=== PATIENT | male | born 1990 | race Caucasian/White ===

== ENCOUNTER 2016-10-15 17:46 | Emergency (ER) | payer BC, OTHER ==
[~2016-10-15] VITALS: Ht 167.6 cm; Wt 86.2 kg
[~2016-10-15 17:46] MED LIST: CYCL10TA9 PO; HYDR-3454 PO; IBUP-1780 PO; NAPR-243 PO; PENI500T PO
[2016-10-15] MEDS ORDERED: PANT20TA2 PO (18:32)
[2016-10-15] MEDS ORDERED: IBUP-1780 PO (18:32)
--- NOTE | 2016-10-15 18:33 | ED Upper Extremity ---
General Chief Complaint: Upper Extremity Nursing Triage Note: PT STATES RT SHOULDER PAIN, HX OF OFF AND ON SINCE 2011. OCCATIONALLY FEELS LIKE IT "POPS" WHEN HE IS WORKING. STATES HE WAS PULLING AT HIS JOB TODAY WHEN IT HAPPENED. Nursing Sepsis Screen: No Definite Risk Source: patient Exam Limitations: no limitations History of Present Illness Time seen by provider: 18:29 Initial Comments To ER with pain and popping in his right shoulder. This is been going on intermittently since [address] Nieves and got some injections in the right shoulder. He states that that did temporarily help however today while at work he was pulling with his right arm and has had significant pain in the elbow since then. Onset: just prior to arrival Severity: moderate Pain/Injury Location: right shoulder Method of Injury: unknown Modifying Factors: Worse With Movement Allergies and Home Medications Allergies Coded Allergies: No Known Drug Allergies (Unverified , 01/24/16) Home Medications Ibuprofen 800 Mg Tablet, 800 MG PO Q8H PRN for PAIN, (Reported) Constitutional: see HPI EENTM: see HPI Respiratory: no symptoms reported Cardiovascular: no symptoms reported Genitourinary: no symptoms reported Musculoskeletal: see HPI Skin: no symptoms reported Psychiatric/Neurological: No Symptoms Reported Past Tjtgwpq-Mmvoac-Jqymvl Hx Patient Social History Alcohol Use: Rarely Uses Recreational Drug Use: No Smoking Status: Current Everyday Smoker Type Used: Cigarettes Recent Foreign Travel: No Contact w/Someone Who Travel: No Recent Infectious Disease Expo: No Recent Hopitalizations: No Immunizations Up To Date Date of Influenza Vaccine: Mar 18, 2016 Seasonal Allergies Seasonal Allergies: Yes Surgeries HX Surgeries: Yes Surgeries: Tonsillectomy Respiratory Hx Respiratory Disorders: No Cardiovascular Hx Cardiac Disorders: No Neurological Hx Neurological Disorders: No Reproductive System Hx Reproductive Disorders: No Genitourinary Hx Genitourinary Disorders: No Gastrointestinal Hx Gastrointestinal Disorders: No Musculoskeletal Hx Musculoskeletal Disorders: No Endocrine Hx Endocrine Disorders: No HEENT HX ENT Disorders: No Cancer Hx Cancer: No Psychosocial Hx Psychiatric Problems: No Physical Exam Vital Signs Vital Sign - Last 12Hours 10/15/16 18:12 Temp 98.8 Pulse 88 Resp 18 B/P (MAP) 135/94 Pulse Ox 98 O2 Delivery Room Air Capillary Refill : Less Than 3 Seconds General Appearance: WD/WN, no apparent distress HEENT: PERRL/EOMI, normal ENT inspection Neck: non-tender, full range of motion Cardiovascular: regular rate, rhythm, no murmur Respiratory: lungs clear, normal breath sounds, no respiratory distress, no accessory muscle use Gastrointestinal: normal bowel sounds, non tender, soft Shoulder: normal inspection, No deformity, No ecchymosis, No limited ROM, pain , No soft tissue tenderness, No swelling Elbow/Forearm: normal inspection, non-tender, Right Wrist: Yes normal inspection, Yes non-tender, Yes no evidence of injury Neurologic/Tendon: normal sensation, normal motor functions Neurologic/Psychiatric: alert, normal mood/affect, oriented x 3 Skin: normal color, warm/dry Progress/Results/Core Measures Results/Orders My Orders Orders - PAUL GAMBINO APRN Shoulder, Right, 3 Views (10/15/16 18:18) Vital Signs/I&O Vital Sign - Last 12Hours 10/15/16 18:12 Temp 98.8 Pulse 88 Resp 18 B/P (MAP) 135/94 Pulse Ox 98 O2 Delivery Room Air Blood Pressure Mean: 108 Departure Communication Progress Notes Patient states that he is already established with Dr. Locke and is in the process of getting an order for an outpatient MRI of the shoulder. Impression Impression: Primary Impression: Internal derangement of right shoulder Departure-Patient Inst. Decision time for Depature: 18:30 Referrals: [facility] (PCP/Family) Primary Care Physician Patient Instructions: How to Use a Shoulder Sling, Shoulder Pain (DC) Add. Discharge Instructions: 1. Follow-up with Dr. Locke to arrange the MRI of the shoulder if you're able to do this. 2. Anti-inflammatories as directed 3. Take the acid compliance examiner as directed while taking the ibuprofen to help protect her stomach because the ibuprofen can be irritating to the stomach All discharge instructions reviewed with patient and/or family. Voiced understanding. Scripts Pantoprazole Sodium (Protonix) 20 Mg Tablet. 20 MG PO DAILY, #20 TAB Prov: PAUL GAMBINO APRN 10/15/16 Ibuprofen (Ibuprofen) 800 Mg Tablet 800 MG PO Q8H Y for PAIN, #20 TAB Prov: PAUL GAMBINO APRN 10/15/16 Work/School Note: Work Release Form Date Seen in the Emergency Department: October 15, 2016 Return to Work: October 16, 2016 Other Restrictions Listed Below: No lifting or pulling with right arm greater than 5 pounds until cleared PAUL GAMBINO APRN October 15, 2016 18:33
[2016-10-15 18:39] VITALS: BP 135/94
== END 2016-10-15 18:39 | disposition home or self-care (01) ==
LOC: EDUNIT# 17:46 → ER 17:49
DX: M24.111 Other articular cartilage disorders, right shoulder (principal)
CPT/HCPCS: 99282

== ENCOUNTER → 2017-02-12 | Outpatient (CLI) | payer BC, OTHER ==
[~2017-02-12] MED LIST changes: +PANT20TA2 PO
--- NOTE | 2017-02-12 09:57 | Diagnostic Imaging Report ---
EXAMINATION: Magnetic resonance imaging of the right shoulder without contrast. DATE: 02/12/2017 COMPARISON: 10/07/2012 HISTORY: Chronic right shoulder pain for years. TECHNIQUE: Magnetic Resonance Imaging sequences were performed of the shoulder without contrast. [< >] FINDINGS: ROTATOR CUFF, LIGAMENTS, TENDONS, AND MUSCLES: The supraspinatus, infraspinatus, teres minor, and subscapularis tendons and muscles are intact. There is normal rotator cuff muscle bulk and signal. LONG HEAD OF BICEPS: The biceps labral attachment and long head of the biceps tendon is intact. The long head of the biceps tendon is normally positioned within the bicipital groove. GLENOHUMERAL JOINT: The humeral head is well positioned relative to the glenoid. The anterior and posterior labrum are intact. The articular cartilage is intact. There is a small amount of fluid just anterior to the labrum. ACROMIOCLAVICULAR JOINT: The acromioclavicular joint is normally aligned. There are no degenerative changes of the acromioclavicular joint. BONE: The bones all have normal configuration. The bone marrow signal is within normal limits. Specifically, negative for fracture, osteomyelitis, osteonecrosis, or marrow replacing process. BURSAE AND SOFT TISSUES: There is a small amount of fluid noted in the subacromial bursa. IMPRESSION: 1. Comparison with previous exam shows continued small amount of fluid in the subacromial bursa. Edema noted within the acromion process previously is resolved. AC joint appears normal now. 2. There is a small amount of fluid noted just anterior to the labrum. This may be secondary to a small anterior labral tear. MR arthrography would be a consideration if patient has labral symptoms. 3. No evidence of rotator cuff tear. Dictated by: Dictated on workstation # [id number]
== END ==
LOC: RAD 06:55
PROVIDERS: ATTEND Orthopaedic Surgery Sports Medicine
DX: M25.511 Pain in right shoulder (principal)
CPT/HCPCS: 73221

== ENCOUNTER 2017-03-12 22:55 | Emergency (ER) | payer BC, OTHER ==
[~2017-03-12] VITALS: Ht 172.7 cm; Wt 87.1 kg
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
[2017-03-13] MEDS ORDERED: KETOROLAC 60 MG/2 ML VIAL IM ONE (01:45)
[2017-03-13] MEDS ORDERED: oxyCODONE/APAP 5/325MG (PERCOCET 5) TABLET PO ONE (01:45)
[2017-03-13] MEDS ORDERED: PRD20T PO (01:45)
[2017-03-13] MEDS ORDERED: ORPHENADRINE 60 MG/2 ML (NORFLEX) AMP IM ONE (01:45)
[2017-03-13] MEDS ORDERED: CYCL10TA9 PO (01:45)
--- NOTE | 2017-03-13 01:45 | ED General ---
General Chief Complaint: Upper Extremity Stated Complaint: R SIDE SHOULDER SPRAIN/PAIN Nursing Triage Note: PT TO ED 9 W/ C/O RT SHOULDER ET NECK PAIN ONSET 1200 YESTERDAY, WORSE TONIGHT. DENIES INJURY. Nursing Sepsis Screen: No Definite Risk Source of Information: Patient Exam Limitations: No Limitations History of Present Illness Time Seen by Provider: 01:30 Initial Comments This 26-year-old gentleman presents to the emergency room with pain in the right shoulder radiating up into the neck and upper back. Pain started when he was moving items in the garage and lifting boxes onto a shelf. He denies any blunt trauma. He has a history of problems with this shoulder caused by a prior injury. He does see Dr. Mascorro for these problems. He has notably spasmed and tender trapezius muscle on the right. Distal right upper extremity appears normal. Pain started yesterday when working in the garage and has worsened over the past 24 hours. Ibuprofen has helped some. Allergies and Home Medications Allergies Coded Allergies: No Known Drug Allergies (Unverified , 01/24/16) Home Medications Cyclobenzaprine HCl 10 Mg Tablet, 10 MG PO TID PRN for SPASMS, #10 Prescribed by: BENSON SEYMOUR on 03/13/17 0145 Ibuprofen 800 Mg Tablet, 800 MG PO Q8H PRN for PAIN, (Reported) Ibuprofen 800 Mg Tablet, 800 MG PO Q8H PRN for PAIN, #20 Prescribed by: PAUL GAMBINO on 10/15/16 183 Pantoprazole Sodium 20 Mg Tablet.dr, 20 MG PO DAILY, #20 Prescribed by: PAUL GAMBINO on 10/15/16 183 Prednisone 20 Mg Tab, 40 MG PO DAILY, #6 Prescribed by: BENSON SEYMOUR on 03/13/17 0145 Constitutional: no symptoms reported EENTM: no symptoms reported Respiratory: no symptoms reported Cardiovascular: no symptoms reported Gastrointestinal: no symptoms reported Genitourinary: no symptoms reported Musculoskeletal: see HPI Skin: no symptoms reported Psychiatric/Neurological: No Symptoms Reported Past Burgdmk-Lcknms-Gbeiap Hx Patient Social History Alcohol Use: Denies Use Number of Drinks Today: AA Alcohol Beverage of Choice: Beer Recreational Drug Use: No Smoking Status: Current Everyday Smoker Type Used: Cigarettes Recent Foreign Travel: No Contact w/Someone Who Travel: No Recent Infectious Disease Expo: No Recent Hopitalizations: No Physical Abuse: No Sexual Abuse: No Mistreated: No Fear: No Immunizations Up To Date Date of Influenza Vaccine: Mar 18, 2016 Seasonal Allergies Seasonal Allergies: Yes Surgeries History of Surgeries: Yes Surgeries: Tonsillectomy Respiratory History of Respiratory Disorde: No Cardiovascular History of Cardiac Disorders: No Neurological History of Neurological Disord: No Reproductive System Hx Reproductive Disorders: No Gastrointestinal History of Gastrointestinal Di: No Musculoskeletal History of Musculoskeletal Dis: Yes (chronic right shoulder pain) Endocrine History of Endocrine Disorders: No Cancer History of Cancer: No Psychosocial History of Psychiatric Problem: No Suicide Risk Score: 0 Integumentary History of Skin or Integumenta: No Physical Exam Vital Signs Vital Sign - Last 12Hours 03/13/17 00:00 Temp 98.1 Pulse 76 Resp 20 B/P (MAP) 147/107 Pulse Ox 98 O2 Delivery Room Air Capillary Refill : Less Than 3 Seconds General Appearance: No Apparent Distress, WD/WN HEENT: PERRL/EOMI, Normal ENT Inspection, Pharynx Normal Neck: Supple, Other (muscle tension and tenderness in the right lateral neck) Respiratory: Lungs Clear, Normal Breath Sounds, No Accessory Muscle Use, No Respiratory Distress Cardiovascular: Regular Rate, Rhythm, No Edema, No Murmur Back: Normal Inspection, No Vertebral Tenderness Extremity: Other (distal right upper extremity is unremarkable with normal range of motion in the elbow and wrist. Radial pulse strong. Quantitative Manager strong. There is notable tenderness and muscle spasm in the trapezius muscle on the right. This seems to be the focus of his pain.) Neurologic/Psychiatric: Alert, Oriented x3, No Motor/Sensory Deficits, Normal Mood/Affect, getterer II-XII Norm as Tested Skin: Normal Color, Warm/Dry Progress/Results/Core Measures Results/Orders My Orders Orders - BENSON BARILLAS MD Ketorolac Injection (Toradol Injection) (03/13/17 01:45) Orphenadrine Injection (Norflex Injectio (03/13/17 01:45) Oxycodone/Apap 5/325mg Tablet (Percocet (03/13/17 01:45) Vital Signs/I&O Blood Pressure Mean: 120 Progress Note : Progress Note Patient received Toradol and Norflex injections. Percocet was given prior to dismissal to help him sleep. He will start steroid therapy tomorrow. Departure Impression Impression: Primary Impression: Muscle spasm of back Additional Impression: Upper back pain Disposition: HOME, SELF-CARE Condition: Improved Departure-Patient Inst. Decision time for Depature: 01:44 Referrals: NO,LOCAL PHYSICIAN (PCP/Family) Primary Care Physician Patient Instructions: Muscle Spasms (DC) Add. Discharge Instructions: Rest in the affected muscles as much as possible. You may try gentle stretching of the affected muscles. You may also try gentle heat or icing in 20 minute intervals as helpful. Use ibuprofen up to 800 mg every 8 hours as needed for primary pain management. Add Tylenol (acetaminophen) up to 1000 mg every 6 hours as needed for additional pain relief. Start your course of prednisone tomorrow morning. Take ibuprofen and prednisone with food or milk to avoid stomach irritation. Follow-up with your primary care physician if not improving by Wednesday. Return to the ER if symptoms worsen. All discharge instructions reviewed with patient and/or family. Voiced understanding. Scripts Cyclobenzaprine HCl (Cyclobenzaprine HCl) 10 Mg Tablet 10 MG PO TID Y for SPASMS, #10 TAB Prov: BENSON BARILLAS MD 03/13/17 Prednisone (Prednisone) 20 Mg Tab 40 MG PO DAILY, #6 TAB Prov: BENSON BARILLAS MD 03/13/17 BENSON BARILLAS MD Mar 13, 2017 01:45
[2017-03-13 02:49] VITALS: BP 136/99
== END 2017-03-13 02:49 | disposition home or self-care (01) ==
LOC: EDUNIT# 22:55 → ER 22:57
DX: M62.830 Muscle spasm of back (principal); M54.6 Pain in thoracic spine; F17.210 Nicotine dependence, cigarettes, uncomplicated; Z90.89 Acquired absence of other organs
CPT/HCPCS: 96372; 99284